=== PATIENT | female | born 1945 | race Caucasian/White ===

== ENCOUNTER → 2018-03-18 09:35 | Outpatient (CLI) | payer MEDICARE, OTHER, SELFPAY ==
--- NOTE | 2018-03-18 09:41 | RAD_ITS ---
STUDY: X-RAY - RIGHT KNEE REASON FOR EXAM: Female, 72 years old. Pain, decreased range of motion TECHNIQUE: For view(s) of the knee. COMPARISON: None. FINDINGS: Normal visualized distal femur. Normal visualized proximal tibia and fibula. Normal proximal tibiofibular articulation. 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 There is mild degenerative arthrosis of the lateral femorotibial compartment. There is mild degenerative arthrosis of the patellofemoral articulation. The soft tissue structures are unremarkable. RAD/Knee 4 or More Views IMPRESSION: Mild arthrosis, no demonstrated fracture or aggressive osseous lesion Electronically Signed: Wayne Casillas MD at 11:04 EDT , Service support ,
== END ==
PROVIDERS: Family Provider Family Medicine; PCP Family Medicine; Visit Provider Family Medicine
DX: M25.561 Pain in right knee (principal)
CPT/HCPCS: 73564

== ENCOUNTER 2021-07-28 17:33 | Emergency (ER) | payer MEDICARE, OTHER, SELFPAY ==
[2021-07-28 17:33] VITALS: BP 153/94; PULSE 111; RESP 22; TEMP 37.3; O2SAT 96; BMI 23.5
--- NOTE | 2021-07-28 19:14 | EDS_ITS ---
HPI History of Present Illness Chief Complaint: Shortness of Breath Narrative Narrative: Patient presenting for evaluation secondary to shortness of breath. Patient states that over the course of about the last 12 days she has been dealing with shortness of breath.'s been associated with cough generalized weakness loss of appetite nausea with no vomiting. Patient states that she has migratory myalgias associated with this. She has no underlying lung history. Patient is reasonably healthy. Patient does report that she had loss of taste and smell. Patient's has similar symptoms. Patient is unvaccinated for coronavirus. Review of systems otherwise negative PFSH PFSH Home Medications amoxicillin-pot clavulanate [Augmentin] 1 tab PO BID #14 tab 07/28/21 [Rx Last Taken Unknown] azithromycin 250 mg PO DAILY #4 tablet 07/28/21 [Rx Last Taken Unknown] Allergy/AdvReac Type Severity Reaction Status Date / Time No Known Allergies Allergy Verified 07/28/21 17:33 Social History Smoking Status: Never smoker ROS ROS ED Constitutional Constitutional ED: Reports chills and fever(s) ENT ENT ED: Denies rhinorrhea Cardiovascular Cardiovascular: Denies chest pain Respiratory/Chest Respiratory/Chest: Reports cough and dyspnea Gastrointestinal Gastrointestinal: Reports nausea Genitourinary Genitourinary ED: Denies dysuria or hematuria Musculoskeletal Musculoskeletal: Reports myalgias Integumentary Denies rash Neurologic Neurologic: Denies paresthesias or weakness Psychiatric Psychiatric: Denies depression Endocrine Endocrinology: Denies fatigue Allergic/Immunologic Allergic/Immunologic ED: Denies urticaria EXAM Physical Exam Const Vital Signs: 07/28/21 17:33 07/28/21 20:11 Temperature 99.1 F Temperature Source Temporal Pulse Rate 111 H Respiratory Rate 22 H Respiratory Effort Normal Respiratory Depth Normal Respiratory Pattern Normal Blood Pressure 153/94 H Blood Pressure Mean 113 Pulse Ox 96 Oxygen Delivery Method Room Air Room Air Positive well nourished and well developed General Appearance ED: well developed and NAD HEENT Reports dry mucous membranes Negative for trauma or tenderness Mouth ED: Yes dry mucous membranes Mouth: dry mucous membranes Eyes EOMs intact bilaterally Neck no lymphadenopathy, supple and no JVD Chest Wall inspection of chest normal Resp normal respiratory effort and clear to auscultation bilaterally Cardio regular rhythm, no murmurs and peripheral pulses 2+ throughout Rate: tachycardic GI normal to inspection, nondistended, normoactive bowel sounds, non-tender and no masses Palpation: soft Back/Spine normal to inspection Extremity normal to inspection General Extremety ED: Negative for tenderness Neuro oriented x3 and no sensory deficits noted Sensorium / Orientation: alert Motor Exam: strength 5/5 throughout Psych mental status grossly normal Skin no rashes or lesions noted MDM MDM MDM Narrative Medical decision making narrative: Patient presented secondary to generalized illness. IV was attempted but was unsuccessful. And patient remained stable in the emergency department. CBC demonstrates lymphocyte suppression, chemistry shows modest hyponatremia 131 with maintained renal function. Chest x-ray by my personal review as well as radiology demonstrates multifocal airspace disease potentially representing coronavirus or pneumonia. Patient's coronavirus test was negative. Her symptomatology really seems very consistent with coronavirus infection given the fact that she lost her sense of smell and taste, and has general overall illness but her test was negative. At this point I will treat the patient as if this potentially is a onset of pneumonia even though I think she is probably at the end of a coronavirus infection. Patient be treated with Augmentin and azithromycin first dose is given in the emergency department. Patient was discharged in stable condition. Lab Data Labs: Laboratory Results - last 24 hr 07/28/21 07/28/21 20:10 20:10 WBC 4.6 RBC 4.77 Hgb 13.3 Hct 39.4 MCV 82.6 MCH 27.9 MCHC 33.8 RDW Std Deviation 41.7 RDW Coeff of Beatrice 13.8 Plt Count 220 MPV 9.6 Immature Gran % (Auto) 0.400 Neut % (Auto) 77.5 H Lymph % (Auto) 16.0 L [place] % (Auto) 6.1 Eos % (Auto) 0.0 Baso % (Auto) 0.0 Absolute Neuts (auto) 3.5 Absolute Lymphs (auto) 0.73 L Nucleated RBC % 0 Sodium 131 L Potassium 3.8 Chloride 99 Carbon Dioxide 26.0 Anion Gap 6 BUN 12 Creatinine 0.80 Estim Creat Clear Calc 50.85 Est GFR (MDRD) Af Amer 89 Est GFR (MDRD) Non-Af 74 BUN/Creatinine Ratio 15.0 Glucose 113 H Calcium 8.2 L Radiography Diagnostic Testing: Radiology Impression Chest X-Ray 07/28/21 20:30 IMPRESSION: Multifocal airspace disease likely representing pneumonia. Electronically Signed: Tod Mayes DO at 21:07 EDT Tel , Service support , Discharge Plan Triage Chief Complaint: Shortness of Breath ED Provider: Tod See Dx/Rx/DC Orders Clinical Impression: Pneumonia Instructions: ED Pneumonia (Adult) Prescriptions: New amoxicillin-pot clavulanate [Augmentin] 875-125 mg tablet 1 tab PO BID Qty: 14 RF: 0 azithromycin 250 mg tablet 250 mg PO DAILY Qty: 4 RF: 0 Primary Care Provider: Luan Garcia Referrals: Luan Garcia MD [Primary Care Provider] - 1 Week Disposition Disposition: Home, Self Care
[2021-07-28 20:26] LABS: Absolute Lymphocyte Count 0.73 X10^3/uL (0.83-4.51); Absolute Neutrophil Count 3.5 X10^3/uL (2.0-7.7); Hematocrit 39.4 % (37-47); Hemoglobin 13.3 g/dL (12.0-15.0); Lymphocyte # 0.73 X10^3/ul (0.83-4.51); Mean Corp Hgb Conc 33.8 g/dL (32-36); Mean Corpuscular Hgb 27.9 pg (27.0-32.0); Mean Corpuscular Volume 82.6 fL (81-99); Mean Platelet Vol. 9.6 fl (6.2-12.0); Monocyte# 0.28 X10^3/uL; Monocyte% 6.1 % (0-10); NRBC Flagged by Analyzer 0 % (0-5); Neutrophil # 3.54 X10^3/uL (2.7-7.7); Neutrophil % 77.5 % (47-70); Platelet Count 220 K/mm3 (150-450); RBC Distribution Width CV 13.8 % (11.6-14.6); RBC Distribution Width SD 41.7 fl (35.1-43.9); Red Blood Count 4.77 M/mm3 (4.2-5.4); White Blood Count 4.6 K/mm3 (4.4-11.0)
--- NOTE | 2021-07-28 20:30 | RAD_ITS ---
INDICATION: SOB EXAMINATION/TECHNIQUE: X-RAY - XR Chest 1 View COMPARISON: None. FINDINGS: LINES/DEVICES: None. LUNGS: Right upper lobe ill-defined area of increased density likely representing alveolar filling process. Similar right perihilar subtle opacity also demonstrated. Questionable left lower lobe airspace disease. No pleural effusion. No pneumothorax. MEDIASTINUM AND CARDIOVASCULAR STRUCTURES: Cardiac silhouette not enlarged. Central airways and mediastinal contour are unremarkable. BONES AND SOFT TISSUES: Mild S-shaped curvature thoracolumbar spine. No fracture or focal osseous lesion suggested. RAD/Chest 1 View (Portable) IMPRESSION: Multifocal airspace disease likely representing pneumonia. Electronically Signed: Tod Mayes DO at 21:07 EDT Tel , Service support ,
[2021-07-28 20:40] LABS: Anion Gap 6 (5-15); BUN 12 mg/dL (7-18); Calcium,Total 8.2 mg/dL (8.5-10.1); Chloride 99 mmol/L (98-107); EST Glomerular Filtration Rate 74 mL/min (>60); Est Glom Filt Rate - Afr Amer 89 mL/min (>60); Estimated Creatinine Clearance 50.85 ml/min; Glucose 113 mg/dL (74-106); Potassium 3.8 mmol/L (3.5-5.1); Sodium Level 131 mmol/L (136-145)
[2021-07-28] MEDS: Amox/Clavulanate 875 MG Tablet PO (22:03)
[2021-07-28] MEDS: Azithromycin 250 MG Tablet 500 MG PO (22:03)
[2021-07-28 22:07] VITALS: BP 145/82; PULSE 71; RESP 18; O2SAT 95
== END 2021-07-28 22:07 | disposition home or self-care (01) ==
PROVIDERS: Emergency Provider Emergency Medicine; PCP Family Medicine
DX: J18.9 Pneumonia, unspecified organism (principal)
CPT/HCPCS: 71045; 80048; 85025; 87426; 96360; 99283; J7030

== ENCOUNTER 2021-07-30 06:43 | Emergency (ER) | payer MEDICARE, OTHER, SELFPAY ==
[2021-07-30 06:45] VITALS: BP 156/70; PULSE 110; RESP 26; TEMP 37; O2SAT 94; BMI 23.7
--- NOTE | 2021-07-30 07:04 | RAD_ITS ---
STUDY: X-RAY CHEST REASON FOR EXAM: Female, 76 years old. shortness of breath TECHNIQUE: Single AP portable view of the chest. COMPARISON: 07/28/2021 FINDINGS: No change in the patchy alveolar opacities in both lungs consistent with bilateral pneumonia. There is no demonstrated pleural abnormality. Normal size heart. Normal mediastinum and errol. Normal visualized pulmonary arteries. Normal visualized aortic arch and descending thoracic aorta. There is a dextroscoliosis of the thoracic spine. Normal visualized ribs, clavicles, and shoulders. There is no demonstrated abnormality of the visualized soft tissue structures of the upper abdomen. RAD/Chest 1 View (Portable) IMPRESSION: No change in bilateral pneumonia. Electronically Signed: Nilton Bernardo MD at 7:29 EDT Tel , Service support ,
--- NOTE | 2021-07-30 07:08 | EX.ED.DYSGE1 ---
HPI History of Present Illness Chief Complaint: General Illness Narrative Narrative: Patient presents with generalized weakness and myalgias throughout. She has exposure to Covid and had loss of taste however she had a negative rapid antigen test 2 days ago. No fever or chills, she tells me she has no shortness of breath. No headache or neck pain. No cough or congestion. PFSH PFSH Home Medications amoxicillin-pot clavulanate [Augmentin] 1 tab PO BID #14 tab 07/28/21 [Rx Last Taken Unknown] azithromycin 250 mg PO DAILY #4 tablet 07/28/21 [Rx Last Taken Unknown] Allergy/AdvReac Type Severity Reaction Status Date / Time No Known Allergies Allergy Verified 07/30/21 06:44 Social History Smoking Status: Never smoker ROS ROS ED ROS Narrative Past medical history: Reviewed, none. Medications: Reviewed Social history: Noncontributory Review of systems: All systems negative except as indicated General: No fever. Generalized weakness Eyes: No visual changes ENT: No upper airway congestion, normal voice Neck: No neck pain Cardiovascular: No chest pain Respiratory: No shortness of breath or cough Gastrointestinal: No abdominal pain, nausea vomiting or diarrhea Genitourinary: No dysuria Musculoskeletal: Generalized myalgias Skin: No rash Neurological: No memory loss, confusion or any focal weakness Psych: No recent behavioral changes Hematologic: No easy bleeding or easy bruising EXAM Physical Exam Narrative Exam Narrative: Physical exam General: Patient appears relatively comfortable laying in bed. She does not appear ill Head: Normocephalic, Atraumatic Eyes: Conjunctiva not pale ENT: Dry mucous membranes Neck: Supple, Nontender, No lymphadenopathy Cardiovascular: Regular rate, Regular rhythm Respiratory: No distress, CTA bilaterally Abdomen: Soft, Nontender, Nondistended Back: Nontender, Normal Inspection. Negative for: CVA tenderness Extremities: Nontender, No edema Skin: Normal color, No rash Neurological: Alert, Normal Strength, Normal Sensation Psychological: Normal affect Const Vital Signs: 07/30/21 06:45 07/30/21 06:49 Temperature 98.6 F Temperature Source Oral Pulse Rate 110 H Respiratory Rate 26 H Respiratory Effort Normal Respiratory Pattern Normal Blood Pressure 156/70 H Blood Pressure Mean 98 Pulse Ox 94 Oxygen Delivery Method Room Air MDM MDM MDM Narrative Medical decision making narrative: Patient is found to have COVID-19. She appears well she is saturating well she did have some myalgias which improved with analgesia. I will give her some analgesia for home. I will set her up for a monoclonal antibodies. Otherwise she appears well and can be discharged. Anything changes she is to return. She understands that. Lab Data Labs: Laboratory Results - last 24 hr 07/30/21 07/30/21 07/30/21 06:54 06:54 07:26 WBC 4.7 RBC 4.95 Hgb 13.7 Hct 40.8 MCV 82.4 MCH 27.7 MCHC 33.6 RDW Std Deviation 41.5 RDW Coeff of Beatrice 13.7 Plt Count 329 MPV 9.5 Immature Gran % (Auto) 0.400 Neut % (Auto) 69.8 Lymph % (Auto) 23.7 [place] % (Auto) 5.5 Eos % (Auto) 0.4 Baso % (Auto) 0.2 Absolute Neuts (auto) 3.3 Absolute Lymphs (auto) 1.12 Nucleated RBC % 0 Sodium 135 L Potassium 3.7 Chloride 102 Carbon Dioxide 28.0 Anion Gap 5 BUN 10 Creatinine 0.76 Estim Creat Clear Calc 40.68 Est GFR (MDRD) Af Amer 95 Est GFR (MDRD) Non-Af 79 BUN/Creatinine Ratio 13.2 Glucose 153 H Calcium 8.4 L Total Bilirubin 0.50 AST 102 H ALT 79 H Alkaline Phosphatase 170 H Troponin I High Sens 7 Total Protein 7.0 Albumin 2.8 L Globulin 4.2 Albumin/Globulin Ratio 0.7 L COVID-19 ([facility]) Positive Radiography Diagnostic Testing: Radiology Impression Chest X-Ray 07/30/21 07:04 IMPRESSION: No change in bilateral pneumonia. Electronically Signed: Nilton Bernardo MD at 7:29 EDT Tel , Service support , Discharge Plan Triage Chief Complaint: General Illness ED Provider: Frantz Alvarenga Dx/Rx/DC Orders Clinical Impression: COVID-19 Instructions: Coronavirus Disease 2019 (COVID-19): Overview, Coronavirus Disease 2019 (COVID-19): Caring for Yourself or Others Prescriptions: No Action amoxicillin-pot clavulanate [Augmentin] 875-125 mg tablet 1 tab PO BID Qty: 14 RF: 0 azithromycin 250 mg tablet 250 mg PO DAILY Qty: 4 RF: 0 Other Ambulatory Orders: COVID Outpatient Monoclonal Antibody Referral (Routine) Timeframe: 1 Day Facility: [facility] - Location: [facility] Ordered By: Dr. Frantz Alvarenga Primary Care Provider: Luan Garcia Referrals: Luan Garcia MD [Primary Care Provider] - 2 Days Disposition Disposition: Home, Self Care
[2021-07-30 07:18] LABS: Absolute Lymphocyte Count 1.12 X10^3/uL (0.83-4.51); Absolute Neutrophil Count 3.3 X10^3/uL (2.0-7.7); Basophil# 0.01 X10^3/uL; Basophil% 0.2 % (0-1); Eosinophil# 0.02 X10^3/uL; Eosinophils% 0.4 % (0-5); Hematocrit 40.8 % (37-47); Hemoglobin 13.7 g/dL (12.0-15.0); Lymphocyte # 1.12 X10^3/ul (0.83-4.51); Lymphocyte % 23.7 % (19-41); Mean Corp Hgb Conc 33.6 g/dL (32-36); Mean Corpuscular Hgb 27.7 pg (27.0-32.0); Mean Corpuscular Volume 82.4 fL (81-99); Mean Platelet Vol. 9.5 fl (6.2-12.0); Monocyte# 0.26 X10^3/uL; Monocyte% 5.5 % (0-10); NRBC Flagged by Analyzer 0 % (0-5); Neutrophil # 3.29 X10^3/uL (2.7-7.7); Neutrophil % 69.8 % (47-70); Platelet Count 329 K/mm3 (150-450); RBC Distribution Width CV 13.7 % (11.6-14.6); RBC Distribution Width SD 41.5 fl (35.1-43.9); Red Blood Count 4.95 M/mm3 (4.2-5.4); White Blood Count 4.7 K/mm3 (4.4-11.0)
[2021-07-30] MEDS: 0.9% Normal Saline 1,000 ML 1000 ML IV (07:26)
[2021-07-30 07:31] LABS: ALB/GLOB Ratio 0.7 RATIO (0.9-2.4); AST(SGOT) 102 U/L (15-37); Alanine Aminotransfer ALT/SGPT 79 U/L (13-56); Albumin, Serum 2.8 g/dL (3.2-5.0); Alkaline Phosphatase 170 U/L (45-117); Anion Gap 5 (5-15); BUN 10 mg/dL (7-18); BUN/Creat Ratio 13.2 RATIO (10-20); Calcium,Total 8.4 mg/dL (8.5-10.1); Chloride 102 mmol/L (98-107); Creatinine, Serum 0.76 mg/dL (0.55-1.02); EST Glomerular Filtration Rate 79 mL/min (>60); Est Glom Filt Rate - Afr Amer 95 mL/min (>60); Estimated Creatinine Clearance 40.68 ml/min; Globulin 4.2 g/dL (2.2-4.2); Glucose 153 mg/dL (74-106); Potassium 3.7 mmol/L (3.5-5.1); Sodium Level 135 mmol/L (136-145); Troponin-I HS 7 pg/mL (3.0-54.0)
[2021-07-30 08:35] LABS: Probe Check PASS; Specimen Processing Control PASS
[2021-07-30] MEDS: oxyCODONE 5 MG Tablet PO (08:45)
== END 2021-07-30 09:14 | disposition home or self-care (01) ==
PROVIDERS: Emergency Provider Emergency Medicine; PCP Family Medicine
DX: U07.1 COVID-19 (principal)
CPT/HCPCS: 71045; 80053; 84484; 85025; 87635; 96360; 96361; 99282; J7030; U0005; A4216; U0003